=== PATIENT | female | born 1950 | race Two or more races ===

== ENCOUNTER → 2025-03-18 11:21 | Outpatient (REF) | payer MEDICARE, OTHER, SELFPAY | LOC: HWRCS 11:21 | PROVIDERS: ATTENDING PHYSICIAN Internal Medicine Cardiovascular Disease; FAMILY PHYSICIAN Family Medicine | DX: R06.09 Other forms of dyspnea (principal); Z87.898 Personal history of other specified conditions; I70.90 Unspecified atherosclerosis | CPT/HCPCS: 78452; 93017; A9500; J2785 ==